=== PATIENT | female | born 1995 | race Caucasian/White ===

== ENCOUNTER 2025-02-11 08:49 | Emergency (ER) | payer OTHER ==
--- NOTE | 2025-02-11 09:05 | ER ---
Nurse's Notes [facility] Name: Windy Akers Age: 29 yrs Sex: Female : 1995 Arrival Date: 02/11/2025 Time: 08:49 Bed 1 Private MD: Diagnosis: Pseudocyesis Presentation: 02/11 09:00 Chief complaint: Patient states: REPORTS IS 36 WEEKS , WATER BROKE AT 0100. db . Coronavirus screen: Client denies travel out of the [place] in the last 14 days. At this time, the client does not indicate any symptoms associated with coronavirus-19. Ebola Screen: Patient negative for fever greater than or equal to 101.5 degrees Fahrenheit, and additional compatible Ebola Virus Disease symptoms Patient denies exposure to infectious person. Patient denies travel to an Ebola-affected area in the 21 days before illness onset. No symptoms or risks identified at this time. Initial Sepsis Screen: Does the patient meet any 2 criteria? No. Patient's initial sepsis screen is negative. Does the patient have a suspected source of infection? No. Patient's initial sepsis screen is negative. Risk Assessment: Do you want to hurt yourself or someone else? Patient reports no desire to harm self or others. Onset of symptoms was February 11, 2025. 09:00 Method Of Arrival: Ambulatory db 09:00 Acuity: DOMINICK 3 db Triage Assessment: 09:00 General: Appears in no apparent distress. comfortable, Behavior is calm, cooperative. db Pain: Complains of pain in pelvis. Neuro: Level of Consciousness is awake, alert, obeys commands, Oriented to person, place, time, situation. Respiratory: Airway is patent Respiratory effort is even, unlabored, Respiratory pattern is regular, symmetrical. 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 - Infectious Disease History:: Denies. - Social history:: Smoking status: Patient denies any tobacco usage or history of. Screenin:47 [facility] ED Fall Risk Assessment (Adult) History of falling in the last 3 months, db including since admission No falls in past 3 months (0 pts) Confusion or Disorientation No (0 pts) Intoxicated or Sedated No (0 pts) Impaired Gait No (0 pts) Mobility Assist Device Used No (0 pt) Altered Elimination No (0 pt) Score/Fall Risk Level 0 - 2 = Low Risk Oriented to surroundings, Maintained a safe environment. Abuse screen: Denies threats or abuse. Denies injuries from another. Nutritional screening: No deficits noted. Tuberculosis screening: No symptoms or risk factors identified. Assessment: 09:05 Obstetrical Assessment: General assessment: awake and alert, skin warm and dry, db respirations even and unlabored, Rupture of membranes noted. Contractions are every five minutes, Patient reports abdominal cramping, presence of movement. 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 db 10:16 Reassessment: Patient appears in no apparent distress at this time. Patient and/or db family updated on plan of care and expected duration. Pain level reassessed. Patient is alert, oriented x 3, equal unlabored respirations, skin warm/dry/pink. Vital Signs: 09:00 BP 154 / 78; Pulse 133; Resp 18; Pulse Ox 100% ; db 09:46 BP 148 / 85; Pulse 105; Resp 18; Pulse Ox 100% on R/A; db Vitals: 09:27 Heart Tones UNABLE TO LOCATE HEART TONES. PENDING ULTRASOUND. db ED Course: 08:50 Arm band placed on Patient placed in an exam room. db 08:51 Patient arrived in ED. im 08:53 Alex De La Rosa DO is Attending Physician. dr5 08:58 Shana French, RN is Primary Nurse. db 09:03 Triage completed. db 09:09 Accessed peripheral vein via ultrasound, utilizing dynamic ultrasound technique Blood cm10 collected. Clean \T\ dry. Dressing intact. Good blood return. Flushes easily. 20g right forearm. 09:[address] [facility]. bd 09:46 OB Limited In Process Unspecified. EDMS 09:47 Patient has correct armband on for positive identification. Bed in low position. Call db light in reach. Side rails up X 1. Pulse ox on. NIBP on. Warm blanket given. Pillow given. 09:51 Connor Cartwright DO is Referral Physician. ms3 09:51 Ezio Lopez MD is Referral Physician. ms3 10:16 Provided Education on: DISCHARGE AND FOLLOWUP. db 10:16 No provider procedures requiring assistance completed. IV discontinued, intact, db bleeding controlled, No redness/swelling at site. Administered Medications: No medications were administered Medication: 09:49 VIS not applicable for this client. db Outcome: 09:05 ER care complete, transfer ordered by MD. ms3 09:52 Discharge ordered by MD. ms3 10:16 Discharged to home ambulatory, db 10:16 Condition: stable 10:16 Discharge instructions given to patient, Instructed on discharge instructions, follow up and referral plans. 10:19 Patient left the ED. db Signatures: Dispatcher [employer] EDMS Brittany Andrade Marcus, DO DO ms3 Shana French, RN RN db Layne Cintron Clarissa, RN RN cm10 Cruz Manuel, SUPERVISOR PIPELINE MAINTENANCE-C SUPERVISOR PIPELINE MAINTENANCE-Cdr5
--- NOTE | 2025-02-11 09:05 | EDPHYS ---
Physician Documentation [facility] Name: Windy Akers Age: 29 yrs Sex: Female : 1995 Arrival Date: 02/11/2025 Time: 08:49 Bed 1 Private MD: ED Physician Alex De La Rosa HPI: 02/11 09:02 This 29 yrs old Female presents to ER via Unassigned with complaints of Term Labor. ms3 09:02 29-year-old female with past medical history of epilepsy that is -0-0-2 with last ms3 menstrual period of May 22, [id number] presents to the emergency department for labor. Patient states her contractions are 5 to 6 minutes apart. Patient notes her water broke at 1 AM. Patient states her senior analysis specialist is Keyshawn Junior located in [place]. 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 - Infectious Disease History:: Denies. - Social history:: Smoking status: Patient denies any tobacco usage or history of. ROS: 09:02 Constitutional: Negative for fever, and chills. Cardiovascular: Negative for chest ms3 pain, and palpitations. Respiratory: Negative for shortness of breath, cough, wheezing, and pleuritic chest pain, Abdomen/GI: Negative for abdominal pain, nausea, vomiting, diarrhea, and constipation, 09:02 : Positive for Loss of fluid at 1 am, Exam: 09:02 Constitutional: This is a well developed, well nourished patient who is awake, alert, ms3 and in no acute distress. Cardiovascular: Regular rate and rhythm with a normal S1 and S2. No gallops, murmurs, or rubs. Normal PMI, no JVD. No pulse deficits. Respiratory: Lungs have equal breath sounds bilaterally, clear to auscultation and percussion. No rales, rhonchi or wheezes noted. No increased work of breathing, no retractions or nasal flaring. Abdomen/GI: Soft, non-tender, with normal bowel sounds. No distension or tympany. No guarding or rebound. No evidence of tenderness throughout. 09:02 : Gravid exam: Cervical size: the cervix is not dilated, the nurse was present for the exam, Vital Signs: 09:00 BP 154 / 78; Pulse 133; Resp 18; Pulse Ox 100% ; db 09:46 BP 148 / 85; Pulse 105; Resp 18; Pulse Ox 100% on R/A; db MDM: 08:55 Medical Screening Exam initiated ms3 09:02 Differential diagnosis: Active Labor. ms3 09:54 Data reviewed: vital signs, nurses notes, lab test result(s), and as a result, I will ms3 discharge patient. Independent interpretation of the following test(s) in the Emergency Department Point of Care Ultrasound performed by Emergency Department Team, please see interpretation in the Ultrasound procedure note. Counseling: I had a detailed discussion with the patient and/or guardian regarding the historical points, exam findings, and any diagnostic results supporting the discharge/admit diagnosis, lab results, radiology results, the need for outpatient follow up, to return to the emergency department if symptoms worsen or persist or if there are any questions or concerns that arise at home. Special discussion: I discussed with the patient/guardian in detail that at this point there is no indication for admission to the hospital. It is understood, however, that if the symptoms persist or worsen the patient needs to return immediately for re-evaluation. ED course: Bedside abdominal US performed on arrival and a fetus was not visualized. 02/11 09:00 Order name: Abo/rh Typing db 02/11 09:00 Order name: Basic Metabolic Panel; Complete Time: :44 db 02/11 09:00 Order name: CBC with Diff; Complete Time: :25 db 02/11 09:00 Order name: HCG-Quantitative; Complete Time: :44 db 02/11 09:25 Order name: Test, Serum; Complete Time: 09:55 ms3 02/11 09:46 Order name: OB Limited; Complete Time: 10:17 EDMS 02/11 09:00 Order name: IV Saline Lock; Complete Time: 09:10 db 02/11 09:00 Order name: Labs collected and sent; Complete Time: 09:10 db 02/11 09:00 Order name: NPO; Complete Time: 09:10 db Administered Medications: No medications were administered Disposition Summary: 02/11/25 09:52 Discharge Ordered Notes: Location: Home ms3 Condition: Stable(02/11/25 09:52) ms3 Diagnosis - Pseudocyesis ms3 Followup: ms3 - With: Connor Cartwright DO - When: 2 - 3 days - Reason: Recheck today's complaints Followup: ms3 - With: Ezio Lopez MD - When: 2 - 3 days - Reason: Recheck today's complaints Forms: - Medication Reconciliation Form ms3 - Antibiotic Education ms3 - Prescription Opioid Use ms3 - Patient Portal Instructions ms3 - Leadership Thank You Letter ms3 Signatures: Dispatcher [employer] EDMS Alex De La Rosa DO DO ms3 Shana French RN RN db Corrections: (The following items were deleted from the chart) 09:00 09:00 OB Complete+US.RAD.BRZ ordered. EDMS EDMS 09:00 09:00 ABO/RH TYPING+BB.LAB.BRZ ordered. EDMS EDMS 09:00 09:00 BASIC METABOLIC PANEL+C.LAB.BRZ ordered. EDMS EDMS 09:00 09:00 CBC+H.LAB.BRZ ordered. EDMS EDMS 09:00 09:00 QUANTITATIVE HCG+C.LAB.BRZ ordered. EDMS EDMS 09:37 09:05 ms3 ms3 09:37 09:05 Other Acute Care Facility ms3 ms3 09:37 09:05 Higher level of care ms3 ms3 09:37 09:05 Stable ms3 ms3 09:37 09:05 new ms3 ms3 09:37 09:05 are unchanged ms3 ms3 09:37 09:05 Active Labor ms3 ms3 09:45 09:02 : Gravid exam: Cervical size: the cervix is dilated to approximately 2 cm(s), ms3 the nurse was present for the exam, ms3
[2025-02-11 09:22] LABS: Absolute Lymphocytes (CBC) 1.5 K/uL (0.7-4.9); Hematocrit 40.8 % (36.0-45.0); Hemoglobin 13.7 g/dL (12.0-15.0); MCH 28.0 pg (27.0-35.0); MCHC 33.6 g/dL (32.0-36.0); MCV 83.3 fL (80-100); MPV 10.7 fL (7.6-11.3); Nucleated RBC Absolute Count 0.0 (0-0); Nucleated Red Blood Cells % 0.1 % (0-0); RBC Red Blood Cell Count 4.90 M/uL (3.86-4.86); White Blood Count 6.00 thou/uL (4.3-10.9)
[2025-02-11 09:40] LABS: Anion Gap 10.7 mEq/L (5.0-15.0); BUN Blood Urea Nitrogen 17 mg/dL (7-18); Glucose Level 125 mg/dL (74-106); Potassium 3.7 mEq/L (3.5-5.1)
[2025-02-11 09:44] LABS: HCG, Quantitative < 1 mIU/mL (1-3)
--- NOTE | 2025-02-11 10:04 | RAD REPORT ---
EXAM:OB Limited . CLINICAL HISTORY: with abdominal pain. ABD CRAMPING, TECHNIQUE: Limited OB ultrasound performed. FINDINGS: Examination was very limited. No definitive intrauterine fetus could be grossly identified. Clinical and laboratory correlation recommended.
[2025-02-11 10:22] VITALS: O2SAT 100
[2025-02-11 10:24] VITALS: BP 148/85
== END 2025-02-11 10:19 | disposition home or self-care (01) ==
LOC: ER 08:49
DX: F45.8 Other somatoform disorders (principal)
CPT/HCPCS: 36415; 76815; 80048; 84702; 84703; 85025; 86900; 86901; 99284